=== PATIENT | male | born 1980 | race Native Hawaiian/Other Pacific Islander ===

== ENCOUNTER 2017-12-02 21:32 | Emergency (ER) | payer OTHER ==
[2017-12-02 21:41] VITALS: RESP 18
[2017-12-02] MEDS ORDERED: Sucralfate 1 gm/10 ml Oral Susp UD PO STA (22:24)
[2017-12-02] MEDS ORDERED: Sucralfate 1 gm/10 ml Oral Susp UD ONE (22:33)
[2017-12-02 22:34] LABS: BASO % 0.5 % (0.0-2.0); EOS % 0.5 % (0.0-4.0); LYMPH # 1.6 K/uL (1.0-4.3); LYMPH % 18.8 % (20.0-40.0); MEAN CELL VOLUME 81.5 fL (80.0-94.0); MEAN CORPUSCULAR HEMOGLOBIN 27.2 pg (27.0-31.0); MEAN CORPUSCULAR HGB CONC 33.4 g/dL (33.0-37.0); MEAN PLATELET VOLUME 7.8 fL (7.2-11.7); MONO # 0.6 K/uL (0.0-0.8); MONO % 6.6 % (0.0-10.0); NEUT # 6.3 K/uL (1.8-7.0); NEUT % 73.6 % (50.0-75.0); RBC 5.16 Mil/uL (4.40-5.90); RED CELL DISTRIBUTION WIDTH 14.5 % (11.5-14.5); WHITE BLOOD COUNT 8.5 K/uL (4.8-10.8)
[2017-12-02 22:44] LABS: ALB/GLOB RATIO 1.3 (1.0-2.1); ALBUMIN 4.3 g/dL (3.5-5.0); ALT/SGPT 104 U/L (21-72); AST/SGOT 112 U/L (17-59); BLOOD UREA NITROGEN 7 mg/dL (9-20); GFR AFRICAN-AMERICAN > 60; GFR NON-AFRICAN AMERICAN > 60; LIPASE 144 U/L (23-300)
[2017-12-02 22:46] LABS: URINE BILIRUBIN NEGATIVE (NEGATIVE); URINE BLOOD NEGATIVE (NEGATIVE); URINE CLARITY Clear (Clear); URINE COLOR Yellow (YELLOW); URINE GLUCOSE (UA) NORMAL (Normal); URINE LEUKOCYTE ESTERASE NEG Leu/uL (Negative); URINE NITRATE NEGATIVE (NEGATIVE); URINE PROTEIN NEGATIVE (NEGATIVE); URINE UROBILINOGEN NORMAL mg/dL (0.2-1.0)
--- NOTE | 2017-12-02 23:15 | C.PDOC ---
History Of Present Illness 37 year old male presents to the ER with a complaint of epigastric pain that began today and occasionally radiates to the lower substernal wall. He reports having similar symptoms 3 days ago. Denies nausea or vomiting. Chief Complaint (Nursing): Abdominal Pain History Per: Patient History/Exam Limitations: no limitations Onset/Duration Of Symptoms: Hrs Current Symptoms Are (Timing): Still Present Location Of Pain/Discomfort: Epigastric Radiation Of Pain To:: Chest Quality Of Discomfort: Unable To Describe Associated Symptoms: denies: Fever, Chills, Nausea, Vomiting Exacerbating Factors: None Alleviating Factors: None Recent travel outside of the [place]: No Past Medical History Reviewed: Historical Data, Nursing Documentation, Vital Signs Vital Signs: Last Vital Signs Temp 97.7 F 12/02/17 23:26 Pulse 66 12/02/17 23:26 Resp 18 12/02/17 23:26 BP 128/79 12/02/17 23:26 Pulse Ox 98 12/02/17 23:26 Family History: States: Unknown Family Hx - Social History Hx Alcohol Use: No Hx Substance Use: No - Immunization History Hx Tetanus Toxoid Vaccination: No Hx Influenza Vaccination: No Hx Pneumococcal Vaccination: No Review Of Systems Constitutional: Negative for: Fever, Chills Gastrointestinal: Positive for: Abdominal Pain. Negative for: Nausea, Vomiting Musculoskeletal: Positive for: Other (Lower substernal pain radiating from epigastric) Physical Exam - Physical Exam Appears: Non-toxic, No Acute Distress Skin: Normal Color, Warm, Dry Head: Atraumatic, Normacephalic Eye(s): bilateral: Normal Inspection Oral Mucosa: Moist Neck: Normal, Supple Chest: Symmetrical, Tenderness (Lower substernal area when applying pressure to epigastric region) Cardiovascular: Rhythm Regular Respiratory: Normal Breath Sounds, No Rales, No Rhonchi, No Wheezing Gastrointestinal/Abdominal: Soft, Tenderness (Epigastric), No Guarding, No Rebound Neurological/Psych: Oriented x3, Normal Speech, Other (No focal deficits) ED Course And Treatment - Laboratory Results Result Diagrams: 12/02/17 22:30 12/02/17 22:30 O2 Sat by Pulse Oximetry: 99 (Room air) Pulse Ox Interpretation: Normal Progress Note: Blood work and urinalysis ordered. Carafate and protonix administered. Disposition Counseled Patient/Family Regarding: Diagnosis - Disposition Referrals: [facility] [Outside] Disposition: HOME/ ROUTINE Disposition Time: 23:14 Condition: STABLE Prescriptions: Pantoprazole Sodium [Protonix] 40 mg PO DAILY #20 ect Sucralfate [Carafate] 1 gm PO BID #20 tab Instructions: Sucralfate (By mouth), Pantoprazole (By mouth), Gastritis (GEN), Gastroesophageal Reflux Disease (ED) Forms: [employer] (Pashto) - POA Present On Arrival: None - Clinical Impression Clinical Impression: Abdominal pain, GERD (gastroesophageal reflux disease) - Scribe Statement The provider has reviewed the documentation as recorded by the Scribe Rui Montes All medical record entries made by the Travisibrangel were at my direction and personally dictated by me. I have reviewed the chart and agree that the record accurately reflects my personal performance of the history, physical exam, medical decision making, and the department course for this patient. I have also personally directed, reviewed, and agree with the discharge instructions and disposition.
[2017-12-02 23:27] VITALS: BP 128/79; PULSE 66; TEMP 97.7
[2017-12-02 23:38] VITALS: O2SAT 99
== END 2017-12-02 23:28 | disposition home or self-care (01) ==
LOC: C.ER 21:32
DX: K21.9 Gastro-esophageal reflux disease without esophagitis (principal); R10.13 Epigastric pain
CPT/HCPCS: 80053; 81001; 83690; 85025; 96374; 99284; C9113